=== PATIENT | female | born 1965 | race Caucasian/White ===

== ENCOUNTER → 2017-04-14 | Outpatient (CLI) | payer MEDICARE, OTHER ==
[2016-01-16 14:34] VITALS: BP 124/63
[~2017-04-14] MED LIST: BUTA1CAP5 PO; CLON0.5T3 PO; CYCL10TA2 PO; DICY10CA3 PO; LANS30CA PO; QUET300T6 PO; QUET400T6 PO; TRAZ50TA15 PO
[2017-04-14 12:32] LABS: ALBUMIN 3.8 g/dL (3.4-5.0); CALCIUM 9.8 mg/dL (8.5-10.1); CHOLESTEROL/HDL RATIO 4.4; GFR 58.7; POTASSIUM 3.7 mmol/L (3.5-5.1); TOTAL BILIRUBIN 0.4 mg/dL (0.2-1.0); TOTAL PROTEIN 7.5 g/dL (6.4-8.2)
== END | disposition home or self-care (01) ==
LOC: LAB 11:30
PROVIDERS: ATTEND Family Medicine
DX: E78.5 Hyperlipidemia, unspecified (principal); E55.9 Vitamin D deficiency, unspecified
CPT/HCPCS: 36415; 80053; 80061; 82306

== ENCOUNTER 2021-09-30 17:00 | Inpatient (IN) | payer MEDICARE, MEDICAID ==
[2021-09-30] VITALS (7 sets, daily range): BP systolic 95–124; BP diastolic 51–62
[~2021-09-30] VITALS: Ht 165.1 cm; Wt 69.9 kg
[~2021-09-30 17:00] MED LIST changes: +CLON-77 PO; -CLON0.5T3 PO; +CYCL10TA19 PO; -CYCL10TA2 PO; -QUET300T6 PO; +QUET300T89 PO; -QUET400T6 PO; +QUET400T7 PO; +TRAZ-118 PO; -TRAZ50TA15 PO
[2021-09-30] MEDS ORDERED: IV NORMAL SALINE 1000ML BAG 1,000 ML IV ONE ×3 (17:15→18:00)
[2021-09-30] MEDS ORDERED: ONDANSETRON PF 4 MG/2 ML VIAL. IVP ONE (17:15)
[2021-09-30] MEDS ORDERED: PANTOPRAZOLE IV PUSH 40 MG VIAL. IVP ONE ×2 (17:15→18:00)
[2021-09-30 18:08] LABS: BASO # 0.1 x10^3/uL (0.0-0.2); BASO % 0 % (0-3); EOS % 0 % (0-3); HEMATOCRIT 27.3 % (36.0-47.0); LYMPH # 1.9 x10^3/uL (1.0-4.8); LYMPH % 11 % (24-48); MEAN CORPUSCULAR HEMOGLOBIN 28 pg (25-35); MEAN CORPUSCULAR HGB CONC 33 g/dL (31-37); MEAN CORPUSCULAR VOLUME 86 fL (79-100); MONO % 6 % (0-9); NEUT # 14.4 x10^3/uL (1.8-7.7); NEUT % 83 % (31-73); PLATELET COUNT 248 x10^3/uL (140-400); RED BLOOD COUNT 3.18 x10^6/uL (3.50-5.40); RED CELL DISTRIBUTION WIDTH 13.7 % (11.5-14.5); WHITE BLOOD COUNT 17.4 x10^3/uL (4.0-11.0)
--- NOTE | 2021-09-30 18:16 | PHYS DOC ---
Past Medical History Past Medical History: Anxiety, Asthma, Bipolar, Fibromyalgia, GERD, Pneumonia (JOSEVIJAYA Alicia TRAPEZE PERFORMER) Past Surgical History: Other Additional Past Surgical Histo: patient is a poor historian (VIJAYA ROMEO TRAPEZE PERFORMER) Alcohol Use: None Drug Use: None (OUSMANEVIJAYA TRAPEZE PERFORMER) General Adult EDM: Chief Complaint: HEMATEMESIS/VOMITING BLOOD HPI: HPI: Patient is a 56-year-old female with history of GERD and previous upper GI bleed, bipolar, asthma, overdose with intubation, who presents the ED today to be evaluated for hematemesis. Patient states she started vomiting black emesis yesterday. She states she did not come to the ED to be evaluated because she has PTSD from the previously to intubation. Patient denies any abdominal pain, diarrhea or fever. Patient denies being on any anticoagulants. (VIJAYA ROMEO Ting TRAPEZE PERFORMER) Review of Systems: Review of Systems: Constitutional: Denies fever or chills. [] Eyes: Denies change in visual acuity. [] HENT: Denies nasal congestion or sore throat. [] Respiratory: Denies cough or shortness of breath. [] Cardiovascular: Denies chest pain or edema. [] GI: Reports hematemesis. Denies abdominal pain, bloody stools or diarrhea. [] : Denies dysuria. [] Musculoskeletal: Denies back pain or joint pain. [] Integument: Denies rash. [] Neurologic: Denies headache, focal weakness or sensory changes. [] Psychiatric: Denies depression or anxiety. [] (VIJAYA ROMEO TRAPEZE PERFORMER) Heart Score: C/O Chest Pain: N/A Risk Factors: Risk Factors: DM, Current or recent (<one month) smoker, HTN, HLP, family history of CAD, obesity. Risk Scores: Score 0 - 3: 2.5% MACE over next 6 weeks - Discharge Home Score 4 - 6: 20.3% MACE over next 6 weeks - Admit for Clinical Observation Score 7 - 10: 72.7% MACE over next 6 weeks - Early Invasive Strategies (VIJAYA ROMEO TRAPEZE PERFORMER) Current Medications: Current Medications Medications (Trade) Dose Ordered Sig/William Start Time Stop Time Status Last Admin Dose Admin Ondansetron HCl (Zofran) 4 mg 1X ONCE 09/30/21 17:15 09/30/21 17:16 DC Pantoprazole Sodium (PROTONIX VIAL for IV PUSH) 80 mg 1X ONCE 09/30/21 18:00 09/30/21 18:01 DC Pantoprazole Sodium 80 mg/ Sodium Chloride 100 ml @ 10 mls/hr Q10H 09/30/21 18:00 Sodium Chloride 1,000 ml @ 1,000 mls/hr 1X ONCE 09/30/21 18:00 09/30/21 18:59 (VIJAYA ROMEO TRAPEZE PERFORMER) Allergies: Allergies: Allergies Coded Allergies Type Severity Reaction Last Updated Verified codeine Allergy Intermediate 01/16/16 Yes metoclopramide HCl Allergy Intermediate 01/16/16 Yes (VIJAYA ROMEO TRAPEZE PERFORMER) Physical Exam: PE: Constitutional: Pale ill appearing patient older than stated age HENT: Normocephalic, atraumatic, bilateral external ears normal, oropharynx moist, no oral exudates, nose normal. Exterior mouth has dry black emesis Eyes: PERRLA, EOMI, conjunctiva normal, no discharge. [] Neck: Normal range of motion, no tenderness, supple, no stridor. [] Cardiovascular: Tachycardic Lungs & Thorax: Bilateral breath sounds clear to auscultation [] Abdomen: Bowel sounds normal, soft, no tenderness, no masses, no pulsatile masses. [] Skin: Warm, dry, no erythema, no rash. [] Back: No tenderness, no CVA tenderness. [] Extremities: No tenderness, no cyanosis, no clubbing, ROM intact, no edema. [] Neurologic: Alert and oriented X 3, normal motor function, normal sensory function, no focal deficits noted. [] Psychologic: Affect normal, judgement normal, mood normal. [] (VIJAYA ROMEO TRAPEZE PERFORMER) Current Patient Data: Labs: Laboratory Tests Test 09/30/21 18:00 White Blood Count 17.4 x10^3/uL (4.0-11.0) H Red Blood Count 3.18 x10^6/uL (3.50-5.40) L Hemoglobin 9.0 g/dL (12.0-15.5) L Hematocrit 27.3 % (36.0-47.0) L Mean Corpuscular Volume 86 fL (79-100) Mean Corpuscular Hemoglobin 28 pg (25-35) Mean Corpuscular Hemoglobin Concent 33 g/dL (31-37) Red Cell Distribution Width 13.7 % (11.5-14.5) Platelet Count 248 x10^3/uL (140-400) Neutrophils (%) (Auto) 83 % (31-73) H Lymphocytes (%) (Auto) 11 % (24-48) L Monocytes (%) (Auto) 6 % (0-9) Eosinophils (%) (Auto) 0 % (0-3) Basophils (%) (Auto) 0 % (0-3) Neutrophils # (Auto) 14.4 x10^3/uL (1.8-7.7) H Lymphocytes # (Auto) 1.9 x10^3/uL (1.0-4.8) Monocytes # (Auto) 1.0 x10^3/uL (0.0-1.1) Eosinophils # (Auto) 0.0 x10^3/uL (0.0-0.7) Basophils # (Auto) 0.1 x10^3/uL (0.0-0.2) Laboratory Tests 09/30/21 18:00 Vital Signs: Vital Signs Date Time Temp Pulse Resp B/P (MAP) Pulse Ox O2 Delivery O2 Flow Rate FiO2 09/30/21 17:51 115 22 108/68 (81) 99 Nasal Cannula 4.0 09/30/21 17:15 97.0 97.0 (VIJAYA ROMEO APRN) EKG: EKG: [] (VIJAYA ROMEO APRN) Radiology/Procedures: Radiology/Procedures: [] (VIJAYA ROMEO APRN) Course & Med Decision Making: Course & Med Decision Making Pertinent Labs and Imaging studies reviewed. (See chart for details) This is a pale-appearing ill 56-year-old female patient presenting to the ED to be evaluated for hematemesis since yesterday. Patient arrives in the ED with no blood pressure. Heart rate in the 130s. She is awake alert and oriented. Dr. Quarles was notified and she went to evaluate patient. Labs were ordered, blood 2 units was ordered. Protonix IV push as well as Protonix IV drip was ordered. 3 L of IV fluids ordered Blood pressure noted at 107/57 after IV fluids were started., Heart rate 129, temperature 97.0, O2 sats were 86% on room air, patient was put on 4 L of oxygen currently satting 99%. Given Protonix 80mg IV push and protonix IV fluids also infusing CBC with a WBC of 17.4, hemoglobin 9.0 with hematocrit of 27.3, BUN 65 with creatinine of 1.1, lactic 2.4. 2 L of blood ordered Spoke with Dr. Bermudez GI Spoke with Dr. Sánchez who accepted patient for admission (VIJAYA ROMEO TRAPEZE PERFORMER) Course & Med Decision Making I was asked by the nurse practitioner to see the patient due to reported inability to obtain a blood pressure. She presented here via EMS for coffee ground emesis. She did not demonstrate any emesis here on arrival. I disagree with some of the reported physical exam findings from the DOBIE WORKER. Her conjunctiva are not normal, they are pale. She is generally very unwell appearing, is acute ly ill appearing, agree she appears older than stated age. The patient manifested room air hypoxia, and upon my arrival to the room, no intervention had been performed. I ordered placement of two peripheral IVs, which were placed by the ED nursing staff. I placed the patient on O2/NC myself. Oxygen saturation improved immediately. I ordered the IVF boluses (verbal order in the room), and I told the DOBIE WORKER to order the third bolus as well. I instructed the DOBIE WORKER to order IV Protonix bolus and drip, as well as PRBCs. The DOBIE WORKER was instructed to contact GI and the hospitalist service for admission. I personally obtained blood from the patient via femoral stick, as the IVs did not draw, and the lab food safety auditor was not able to obtain blood peripherally. The patient's BP and tachycardia improved quite quickly once IVF was started. Please see nurse notes for trending vital signs. Dr. Wolfe came on shift shortly after I'd seen the patient, and he reported that he would continue to monitor the patient while under the care of the DOBIE WORKER here in the ED. (FELICITAS QUARLES DO) Janet Disclaimer: Janet Disclaimer: This electronic medical record was generated, in whole or in part, using a voice recognition dictation system. (VIJAYA ROMEO APRN) Departure Departure Impression: Primary Impression: Hematemesis Qualified Codes: K92.0 - Hematemesis Additional Impressions: Anemia Qualified Codes: D64.9 - Anemia, unspecified Hypotension Qualified Codes: I95.9 - Hypotension, unspecified Upper GI bleeding Referrals: SEPIDEH ADKINS (PCP) Scripts Pantoprazole Sodium (PANTOPRAZOLE SODIUM ) 40 Mg Tablet. 40 MG PO BIDAC for esophagitis for 60 Days, #120 TAB.SR Prov: NICHOLAS SÁNCHEZ MD 10/02/21 VIJAYA ROMEO APRN Sep 30, 2021 18:16 FELICITAS QUARLES DO Oct 08, 2021 06:32
[2021-09-30 18:17] LABS: PROTHROMBIN TIME PATIENT 13.9 SEC (11.7-14.0)
[2021-09-30 18:19] LABS: CALCIUM 8.6 mg/dL (8.5-10.1); CREATININE 1.1 mg/dL (0.6-1.0); GFR 51.8; POTASSIUM 3.9 mmol/L (3.5-5.1)
[2021-09-30 18:25] LABS: ALBUMIN 2.1 g/dL (3.4-5.0); ALBUMIN/GLOBULIN RATIO 0.9 (1.0-1.7); TOTAL BILIRUBIN 0.2 mg/dL (0.2-1.0); TOTAL PROTEIN 4.4 g/dL (6.4-8.2)
[2021-09-30] MEDS: PANTOPRAZOLE SODIUM IV DRIP 80 MG in IV NORMAL SALINE 100ML 100 ML IV SCH (18:40)
[2021-09-30] MEDS ORDERED: ONDANSETRON PF 4 MG/2 ML VIAL. IVP PRN (18:45)
[2021-09-30] MEDS ORDERED: 0.9 % SODIUM CHLORIDE 10 ML DISP.SYRIN. IV PRN (18:45)
--- NOTE | 2021-09-30 19:14 | PDOC1 ---
History and Physical Date of Service: DOS: DATE: 09/30/21 TIME: 18:59 Chief Complaint: Problems: (1) Hematemesis Chief Complain: hematemesis History of Present Illness: HPI: Patient is a 56-year-old female presented to the emergency room today due to 1 day history of hematemesis. Patient and mother at bedside provided history. They said that yesterday the patient had an episode of projectile like black vomit. Patient had had a decreased appetite for a few days thus had not really been eating much. The vomiting continued for at least 4-5 episodes all of which were nearly black according to them. Initially did not present to the emergency room however this morning she was still coughing up some dark-colored output thus decided present to the emergency room here. Patient does have a history of GI bleed in the past. Says it was multiple years ago she thinks she had an upper GI and colonoscopy with Dr. Bermudez. I do see pathology results from a previous EGD that shows esophagitis. Patient does repo rt she has been taking various acid reducing therapy since then. Says she believes she is on Protonix right now. I do see Prevacid in her chart. Says she is also been taking Pepto-Bismol and eating Tums multiple times a day She does also report having chronic pain that she has had to manage with [id number] medicines. Denies taking any NSAIDs like ibuprofen. Denies taking aspirin. Does take an excessive amount of Tylenol throughout the day. Says she will take up to 8 pills at a time 3 or 4 times a day. She did not really clarify what dosage of acetaminophen she was taking. On presentation to the emergency room patient was very cold and shivering. Low blood pressure was given 3 L normal saline. Hemoglobin came back at 9 and GI team was consulted by the emergency room. Recommended 2 units of blood and ICU admission. Past Medical/Surgical History: PMH/PSH: Anxiety, Asthma, Bipolar, Fibromyalgia, GERD, Pneumonia, GI Bleed Allergies: Allergies: Coded Allergies: codeine (Verified Allergy, Intermediate, 01/16/16) metoclopramide HCl (Verified Allergy, Intermediate, 01/16/16) Family History: Family History: Family history ulcers Social History: Social History: Used to binge drink in her 20s. Denies tobacco use. No drug use Current Medications: Current Medications Current Medications Pantoprazole Sodium (PROTONIX VIAL for IV PUSH) 40 mg 1X ONCE IVP ; Start 09/30/21 at 17:15; Stop 09/30/21 at 17:16; Status Cancel Sodium Chloride 1,000 ml @ 1,000 mls/hr 1X ONCE IV Last administered on 09/30/21at 17:15; Start 09/30/21 at 17:15; Stop 09/30/21 at 18:14; Status DC Ondansetron HCl (Zofran) 4 mg 1X ONCE IVP Last administered on 09/30/21at 17:45; Start 09/30/21 at 17:15; Stop 09/30/21 at 17:16; Status DC Sodium Chloride 1,000 ml @ 1,000 mls/hr 1X ONCE IV Last administered on 09/30/21at 17:45; Start 09/30/21 at 17:45; Stop 09/30/21 at 18:44; Status DC Pantoprazole Sodium (PROTONIX VIAL for IV PUSH) 80 mg 1X ONCE IVP Last administered on 09/30/21at 18:00; Start 09/30/21 at 18:00; Stop 09/30/21 at 18:01; Status DC Pantoprazole Sodium 80 mg/ Sodium Chloride 100 ml @ 10 mls/hr Q10H IV Last administered on 09/30/21at 18:40; Start 09/30/21 at 18:00 Sodium Chloride 1,000 ml @ 1,000 mls/hr 1X ONCE IV ; Start 09/30/21 at 18:00; Stop 09/30/21 at 18:59; Status DC Ondansetron HCl (Zofran) 4 mg PRN Q6HRS PRN IVP NAUSEA/VOMITING; Start 09/30/21 at 18:45 Info ([facility] Electrolyte Protocol) 1 ea DAILY MC ; Start 10/01/21 at 09:00 Sodium Chloride (Normal Saline Flush) 3 ml QSHIFT PRN IV AFTER MEDS AND BLOOD DRAWS; Start 09/30/21 at 18:45 Clonazepam (KlonoPIN) 0.5 mg BID PO ; Start 09/30/21 at 21:00 Cyclobenzaprine HCl (Flexeril) 10 mg BID PO ; Start 09/30/21 at 21:00 Quetiapine Fumarate (SEROquel XR) 300 mg HS PO ; Start 09/30/21 at 21:00 Active Scripts Active Reported Cyclobenzaprine Hcl 10 Mg Tablet 1 Tab PO BID Seroquel Xr (Quetiapine Fumarate) 300 Mg Tab.er.24h 1 Tab PO HS Trazodone Hcl 50 Mg Tablet 1 Tab PO PRN DAILY PRN Lansoprazole 30 Mg Capsule.dr 1 Cap PO DAILY Dicyclomine Hcl 10 Mg Capsule 1 Cap PO TID Pwhxjhyirw-Qpc-Jiqlqgru Cap (Butalbital/Aspirin/Caffeine) 1 Each Capsule 1 Each PO BID Clonazepam (Clonazepam) 0.5 Mg Tablet 1 Tab PO BID Seroquel Xr (Quetiapine Fumarate) 400 Mg Tab.er.24h 1 Tab PO HS ROS: Review of Systems Review of System Unless noted in HPI 14 point review of systems was negative Physical Exam: Vital Signs: Vital Signs Date Time Temp Pulse Resp B/P (MAP) Pulse Ox O2 Delivery O2 Flow Rate FiO2 09/30/21 17:51 115 22 108/68 (81) 99 Nasal Cannula 4.0 09/30/21 17:15 97.0 97.0 Physcial Exam: GEN: Appears cachectic HEENT: Normal cephalic, atraumatic, external auditory canals are patent EYES: Extraocular muscles are intact, pupil are equally round and reactive to light and accommodation MUSCULOSKELETAL: Well developed , well nourished, good range of motion ENDOCRINE: No thyromegaly was palpated LYMPHATICS: No cervical chain or axillary nodes were noted HEMATOPOIETIC: No bruising NECK: Supple, no JVD, no thyromegaly was noted LUNGS: Clear to auscultation in all lung nance without rhonchi or wheezing HEART: RRR, S!, S2 present. Peripheral pulses intact, no obvious murmurs noted ABDOMEN: Soft, nontender. Positive bowel sounds, no organomegaly, normal bowel sounds EXTREMITIES: Without clubbing, cyanosis, or edema. Pedal pulses intact. Negative Homans sign NEUROLOGIC: Normal speech and tone. A&O x 3, moves all extremities, no obvious focal deficits PSYCHIATRIC: Normal affect, normal mood. Stable SKIN: No ulcerations or rashes, good skin turgor, no jaundice VASCULAR: Good capillary refill, neurovascular bundle appears to be intact Labs: Labs: Laboratory Tests Test 09/30/21 18:00 White Blood Count 17.4 x10^3/uL (4.0-11.0) Red Blood Count 3.18 x10^6/uL (3.50-5.40) Hemoglobin 9.0 g/dL (12.0-15.5) Hematocrit 27.3 % (36.0-47.0) Mean Corpuscular Volume 86 fL (79-100) Mean Corpuscular Hemoglobin 28 pg (25-35) Mean Corpuscular Hemoglobin Concent 33 g/dL (31-37) Red Cell Distribution Width 13.7 % (11.5-14.5) Platelet Count 248 x10^3/uL (140-400) Neutrophils (%) (Auto) 83 % (31-73) Lymphocytes (%) (Auto) 11 % (24-48) Monocytes (%) (Auto) 6 % (0-9) Eosinophils (%) (Auto) 0 % (0-3) Basophils (%) (Auto) 0 % (0-3) Neutrophils # (Auto) 14.4 x10^3/uL (1.8-7.7) Lymphocytes # (Auto) 1.9 x10^3/uL (1.0-4.8) Monocytes # (Auto) 1.0 x10^3/uL (0.0-1.1) Eosinophils # (Auto) 0.0 x10^3/uL (0.0-0.7) Basophils # (Auto) 0.1 x10^3/uL (0.0-0.2) Prothrombin Time 13.9 SEC (11.7-14.0) Prothromb Time International Ratio 1.1 (0.8-1.1) Activated Partial Thromboplast Time 24 SEC (24-38) Sodium Level 139 mmol/L (136-145) Potassium Level 3.9 mmol/L (3.5-5.1) Chloride Level 106 mmol/L (98-107) Carbon Dioxide Level 25 mmol/L (21-32) Anion Gap 8 (6-14) Blood Urea Nitrogen 65 mg/dL (7-20) Creatinine 1.1 mg/dL (0.6-1.0) Estimated GFR (Cockcroft-Gault) 51.8 BUN/Creatinine Ratio 59 (6-20) Glucose Level 141 mg/dL (70-99) Lactic Acid Level 2.4 mmol/L (0.4-2.0) Calcium Level 8.6 mg/dL (8.5-10.1) Total Bilirubin 0.2 mg/dL (0.2-1.0) Aspartate Amino Transf (AST/SGOT) 32 U/L (15-37) Alanine Aminotransferase (ALT/SGPT) 37 U/L (14-59) Alkaline Phosphatase 57 U/L (46-116) Total Protein 4.4 g/dL (6.4-8.2) Albumin 2.1 g/dL (3.4-5.0) Albumin/Globulin Ratio 0.9 (1.0-1.7) Lipase 34 U/L (73-393) Laboratory Tests Test 09/30/21 18:00 White Blood Count 17.4 x10^3/uL (4.0-11.0) Red Blood Count 3.18 x10^6/uL (3.50-5.40) Hemoglobin 9.0 g/dL (12.0-15.5) Hematocrit 27.3 % (36.0-47.0) Mean Corpuscular Volume 86 fL (79-100) Mean Corpuscular Hemoglobin 28 pg (25-35) Mean Corpuscular Hemoglobin Concent 33 g/dL (31-37) Red Cell Distribution Width 13.7 % (11.5-14.5) Platelet Count 248 x10^3/uL (140-400) Neutrophils (%) (Auto) 83 % (31-73) Lymphocytes (%) (Auto) 11 % (24-48) Monocytes (%) (Auto) 6 % (0-9) Eosinophils (%) (Auto) 0 % (0-3) Basophils (%) (Auto) 0 % (0-3) Neutrophils # (Auto) 14.4 x10^3/uL (1.8-7.7) Lymphocytes # (Auto) 1.9 x10^3/uL (1.0-4.8) Monocytes # (Auto) 1.0 x10^3/uL (0.0-1.1) Eosinophils # (Auto) 0.0 x10^3/uL (0.0-0.7) Basophils # (Auto) 0.1 x10^3/uL (0.0-0.2) Prothrombin Time 13.9 SEC (11.7-14.0) Prothromb Time International Ratio 1.1 (0.8-1.1) Activated Partial Thromboplast Time 24 SEC (24-38) Sodium Level 139 mmol/L (136-145) Potassium Level 3.9 mmol/L (3.5-5.1) Chloride Level 106 mmol/L (98-107) Carbon Dioxide Level 25 mmol/L (21-32) Anion Gap 8 (6-14) Blood Urea Nitrogen 65 mg/dL (7-20) Creatinine 1.1 mg/dL (0.6-1.0) Estimated GFR (Cockcroft-Gault) 51.8 BUN/Creatinine Ratio 59 (6-20) Glucose Level 141 mg/dL (70-99) Lactic Acid Level 2.4 mmol/L (0.4-2.0) Calcium Level 8.6 mg/dL (8.5-10.1) Total Bilirubin 0.2 mg/dL (0.2-1.0) Aspartate Amino Transf (AST/SGOT) 32 U/L (15-37) Alanine Aminotransferase (ALT/SGPT) 37 U/L (14-59) Alkaline Phosphatase 57 U/L (46-116) Total Protein 4.4 g/dL (6.4-8.2) Albumin 2.1 g/dL (3.4-5.0) Albumin/Globulin Ratio 0.9 (1.0-1.7) Lipase 34 U/L (73-393) Images: Images Assessment/Plan Assessment/Plan Hematemesis secondary to suspected upper GI bleed versus gastroenteritis, severe malnutrition, history of multiple psychiatric issues -Patient with 1 day history hematemesis presented emergency room today. Hypotensive requiring fluid resuscitation. Anemic possible GI bleed -Hemoglobin 9 upon arrival. GI team was consulted by emergency room recommending ICU admission and 2 units packed red blood cells -Has history of GI bleeds -Patient is already received 3 L of fluid. Try albumin next if low blood pressure otherwise can start vasopressors -Protonix drip -Patient does have a leukocytosis which I do suspect is secondary to her vomiting and likely bleed however given clinical presentation will start Rocephin for empiric coverage -We will check Tylenol level. UA UDS -N.p.o. -No DVT prophylaxis -Home meds resumed as indicated I spent 45 minutes of critical care time reviewing patient's chart labs imaging, [id number] with the patient examining patient and discussing with ER physicians and nurses. Justifications for Admission Other Justification NICHOLAS SÁNCHEZ MD Sep 30, 2021 19:14
[2021-09-30 19:18] LABS: ACETAMIN 3.94 mcg/ml (10-30)
[2021-09-30] MEDS: cefTRIAXone IV Push 1 GM VIAL. IVP SCH (19:53)
[2021-09-30 20:58] LABS: BILIRUBIN,URINE NEGATIVE (NEG); CLARITY,URINE CLEAR; COLOR,URINE YELLOW; NITRITE,URINE NEGATIVE (NEG); PH,URINE 5.5 (<5.0-8.0); PROTEIN,URINE NEGATIVE (NEG-TRACE); UROBILINOGEN,URINE 0.2 mg/dL (0.2 mg/dL)
[2021-09-30] MEDS ORDERED: QUEtiapine 300 MG TAB.ER.24H. PO SCH (21:00)
[2021-09-30 21:05] LABS: BARBITURATES NEG (NEG); BENZODIAZEPINES POS (NEG); CANNABINOIDS NEG (NEG); COCAINE NEG (NEG); METHADONE NEG (NEG); OPIATES POS (NEG); PHENCYCLIDINE NEG (NEG)
[2021-09-30 21:10] LABS: AMPHETAMINE/METHAMPHETAMINE NEG (NEG)
[2021-09-30 21:19] LABS: BACTERIA,URINE MODERATE /HPF (0-FEW)
[2021-09-30 21:21] LABS: AMORPHOUS SEDIMENT,UR PRESENT /HPF; RBC,URINE 0 /HPF (0-2)
[2021-09-30 21:22] LABS: HYALINE CASTS, URINE OCCASIONAL /HPF
[2021-09-30 23:09] LABS: BASO # 0.1 x10^3/uL (0.0-0.2); BASO % 1 % (0-3); EOS % 0 % (0-3); HEMATOCRIT 33.5 % (36.0-47.0); HEMOGLOBIN 11.1 g/dL (12.0-15.5); LYMPH # 2.3 x10^3/uL (1.0-4.8); LYMPH % 16 % (24-48); MEAN CORPUSCULAR HEMOGLOBIN 28 pg (25-35); MEAN CORPUSCULAR HGB CONC 33 g/dL (31-37); MEAN CORPUSCULAR VOLUME 85 fL (79-100); MONO # 0.7 x10^3/uL (0.0-1.1); MONO % 5 % (0-9); NEUT # 11.5 x10^3/uL (1.8-7.7); NEUT % 79 % (31-73); PLATELET COUNT 180 x10^3/uL (140-400); RED BLOOD COUNT 3.96 x10^6/uL (3.50-5.40); WHITE BLOOD COUNT 14.5 x10^3/uL (4.0-11.0)
[2021-10-01] VITALS (19 sets, daily range): BP systolic 90–113; BP diastolic 44–61
[2021-10-01] MEDS ORDERED: ONDANSETRON PF 4 MG/2 ML VIAL. IVP PRN
[2021-10-01] MEDS: clonazePAM 0.5 MG TABLET PO SCH ×2 (01:45→09:00)
[2021-10-01] MEDS: CYCLOBENZAPRINE 10 MG TABLET. PO SCH ×4 (01:45→20:01)
[2021-10-01] MEDS: PANTOPRAZOLE SODIUM IV DRIP 80 MG in IV NORMAL SALINE 100ML 100 ML IV SCH (03:04)
[2021-10-01] MEDS ORDERED: PANT40TA77 PO (03:40)
[2021-10-01] MEDS ORDERED: FLUO40CA2 PO (03:40)
[2021-10-01] MEDS ORDERED: ARIP5TAB58 PO (03:40)
[2021-10-01] MEDS ORDERED: HYDR50TA PO (03:40)
[2021-10-01] MEDS ORDERED: EZET10TA20 PO (03:40)
[2021-10-01] MEDS ORDERED: OMEG1CAP50 PO (03:40)
[2021-10-01] MEDS ORDERED: CLONAZEPAM1 MG PO (03:40)
[2021-10-01] MEDS ORDERED: PROP10TA PO (03:40)
[2021-10-01] MEDS ORDERED: GLUC1TAB71 PO (03:40)
--- NOTE | 2021-10-01 07:19 | NUR ---
Pt states that she does not want to be intubated, specified that she only wants chest compressions and medications, no intubation. Miranda VINCENT also witnessed this.
[2021-10-01] MEDS: IV RINGERS,LACTATED 1000ML 1,000 ML IV SCH ×2 (08:28→19:57)
--- NOTE | 2021-10-01 08:58 | PDOC2 ---
GI CONSULT Date of Service: DATE: 10/01/21 TIME: 08:48 Reason For Consult: GI bleed HPI: HPI: 56 y/o female admitted through ER. Ill since Wednesday - began with nausea, then progressed to "projectile black" vomiting on Wednesday, less Wednesday. Associated w/ dizziness and weakness in legs. Denies precipitating events. H/o GERD on PPI QD; also has been taking "antacid chew" for breakthrough heartburn. Sore throat and hoarseness currently. Occasional dysphagia ("poornima comes up") only w/ pasta. No abd pain, constipation, or hematochezia. H/o IBS- D - takes Pepto and sometimes stools look black. Might have lost a few pounds. Good appetite prior to symptom onset. Past EGD w/ Dr. Bermudez in 12/2015 - cannot view procedure report but esophagus biopsy result c/w reflux esophagitis w/ ulcer. She reports normal colonoscopy around this time; these results are also unavailable for review. S/p cholecystectomy. H/o C Diff (thinks while intubated in 2003). Denies liver, pancreas, and PUD history. Viral Hepatitis panel negative. No NSAIDs but takes "a lot" of Tylenol. PMH: PMH: asthma, pneumonia, anxiety, bipolar, fibromyalgia, UE DVT cholecystectomy, sinus surgery, FH: Family History: No pertinent hx Social History: Smoke: No ALCOHOL: other (h/o binge drinking a couple years ago - now drinks alcohol ra rely) Drugs: None ROS: GEN: Denies fevers, chills, sweats HEENT: +sore throat CV: Denies chest pain RESP: Denies shortness of air, cough GI: Per HPI : Denies hematuria, dysuria ENDO: Denies weight changes NEURO: +dizziness MSK: +weakness SKIN: Denies jaundice, pruritus Vitals: Vitals: Vital Signs Date Time Temp Pulse Resp B/P (MAP) Pulse Ox O2 Delivery O2 Flow Rate FiO2 10/01/21 08:33 Nasal Cannula 2.0 10/01/21 08:23 116 18 106/47 (66) 98 10/01/21 08:23 97.4 97.4 Labs: Labs: Laboratory Tests Test 09/30/21 18:00 09/30/21 20:45 09/30/21 22:55 10/01/21 02:25 White Blood Count 17.4 x10^3/uL (4.0-11.0) 14.5 x10^3/uL (4.0-11.0) Red Blood Count 3.18 x10^6/uL (3.50-5.40) 3.96 x10^6/uL (3.50-5.40) Hemoglobin 9.0 g/dL (12.0-15.5) 11.1 g/dL (12.0-15.5) Hematocrit 27.3 % (36.0-47.0) 33.5 % (36.0-47.0) Mean Corpuscular Volume 86 fL (79-100) 85 fL (79-100) Mean Corpuscular Hemoglobin 28 pg (25-35) 28 pg (25-35) Mean Corpuscular Hemoglobin Concent 33 g/dL (31-37) 33 g/dL (31-37) Red Cell Distribution Width 13.7 % (11.5-14.5) 14.0 % (11.5-14.5) Platelet Count 248 x10^3/uL (140-400) 180 x10^3/uL (140-400) Neutrophils (%) (Auto) 83 % (31-73) 79 % (31-73) Lymphocytes (%) (Auto) 11 % (24-48) 16 % (24-48) Monocytes (%) (Auto) 6 % (0-9) 5 % (0-9) Eosinophils (%) (Auto) 0 % (0-3) 0 % (0-3) Basophils (%) (Auto) 0 % (0-3) 1 % (0-3) Neutrophils # (Auto) 14.4 x10^3/uL (1.8-7.7) 11.5 x10^3/uL (1.8-7.7) Lymphocytes # (Auto) 1.9 x10^3/uL (1.0-4.8) 2.3 x10^3/uL (1.0-4.8) Monocytes # (Auto) 1.0 x10^3/uL (0.0-1.1) 0.7 x10^3/uL (0.0-1.1) Eosinophils # (Auto) 0.0 x10^3/uL (0.0-0.7) 0.0 x10^3/uL (0.0-0.7) Basophils # (Auto) 0.1 x10^3/uL (0.0-0.2) 0.1 x10^3/uL (0.0-0.2) Prothrombin Time 13.9 SEC (11.7-14.0) Prothromb Time International Ratio 1.1 (0.8-1.1) Activated Partial Thromboplast Time 24 SEC (24-38) Sodium Level 139 mmol/L (136-145) Potassium Level 3.9 mmol/L (3.5-5.1) Chloride Level 106 mmol/L (98-107) Carbon Dioxide Level 25 mmol/L (21-32) Anion Gap 8 (6-14) Blood Urea Nitrogen 65 mg/dL (7-20) Creatinine 1.1 mg/dL (0.6-1.0) Estimated GFR (Cockcroft-Gault) 51.8 BUN/Creatinine Ratio 59 (6-20) Glucose Level 141 mg/dL (70-99) Lactic Acid Level 2.4 mmol/L (0.4-2.0) 0.6 mmol/L (0.4-2.0) Calcium Level 8.6 mg/dL (8.5-10.1) Total Bilirubin 0.2 mg/dL (0.2-1.0) Aspartate Amino Transf (AST/SGOT) 32 U/L (15-37) Alanine Aminotransferase (ALT/SGPT) 37 U/L (14-59) Alkaline Phosphatase 57 U/L (46-116) Total Protein 4.4 g/dL (6.4-8.2) Albumin 2.1 g/dL (3.4-5.0) Albumin/Globulin Ratio 0.9 (1.0-1.7) Lipase 34 U/L (73-393) Acetaminophen Level 3.94 mcg/ml (10-30) Acetaminophen Last Dose Date Acetaminophen Last Dose Time Hepatitis A IgM Antibody Nonreactive (Nonreactive) Hepatitis B Surface Antigen Nonreactive (Nonreactive) Hepatitis B Core IgM Antibody Nonreactive (Nonreactive) Hepatitis C IgG Antibody Nonreactive (Nonreactive) Urine Collection Type U cath Urine Color Yellow Urine Clarity Clear Urine pH 5.5 (<5.0-8.0) Urine Specific [place] 1.025 (1.000-1.030) Urine Protein Negative mg/dL (NEG-TRACE) Urine Glucose (UA) Negative mg/dL (NEG) Urine Ketones (Stick) Negative mg/dL (NEG) Urine Blood Negative (NEG) Urine Nitrite Negative (NEG) Urine Bilirubin Negative (NEG) Urine Urobilinogen Dipstick 0.2 mg/dL (0.2 mg/dL) Urine Leukocyte Esterase Negative (NEG) Urine RBC 0 /HPF (0-2) Urine WBC 1-4 /HPF (0-4) Urine Squamous Epithelial Cells Few /LPF Urine Amorphous Sediment Present /HPF Urine Bacteria Moderate /HPF (0-FEW) Urine Hyaline Casts Occasional /HPF Urine Mucus Mod /LPF Urine Opiates Screen Pos (NEG) Urine Methadone Screen Neg (NEG) Urine Barbiturates Neg (NEG) Urine Phencyclidine Screen Neg (NEG) Urine Amphetamine/Methamphetamine Neg (NEG) Urine Benzodiazepines Screen Pos (NEG) Urine Cocaine Screen Neg (NEG) Urine Cannabinoids Screen Neg (NEG) Urine Ethyl Alcohol Neg (NEG) SARS-CoV-2 Antigen (Rapid) Negative (NEGATIVE) Allergies: Coded Allergies: codeine (Verified Allergy, Intermediate, 10/01/21) metoclopramide HCl (Verified Allergy, Intermediate, 10/01/21) quetiapine (Verified Allergy, Unknown, 10/01/21) pt states it makes her psychotic,and hallucinate. Medications: Current Medications Medications (Trade) Dose Ordered Sig/William Route PRN Reason Start Time Stop Time Status Last Admin Dose Admin Sodium Chloride 1,000 ml @ 1,000 mls/hr 1X ONCE IV 09/30/21 17:15 09/30/21 18:14 DC 09/30/21 17:15 Ondansetron HCl (Zofran) 4 mg 1X ONCE IVP 09/30/21 17:15 09/30/21 17:16 DC 09/30/21 17:45 Sodium Chloride 1,000 ml @ 1,000 mls/hr 1X ONCE IV 09/30/21 17:45 09/30/21 18:44 DC 09/30/21 17:45 Pantoprazole Sodium (PROTONIX VIAL for IV PUSH) 80 mg 1X ONCE IVP 09/30/21 18:00 09/30/21 18:01 DC 09/30/21 18:00 Pantoprazole Sodium 80 mg/ Sodium Chloride 100 ml @ 10 mls/hr Q10H IV 09/30/21 18:00 10/01/21 03:04 Sodium Chloride 1,000 ml @ 1,000 mls/hr 1X ONCE IV 09/30/21 18:00 09/30/21 18:59 DC 09/30/21 19:53 Clonazepam (KlonoPIN) 0.5 mg BID PO 09/30/21 21:00 10/01/21 01:45 Cyclobenzaprine HCl (Flexeril) 10 mg BID PO 09/30/21 21:00 10/01/21 01:45 Ceftriaxone Sodium (Rocephin) 1 gm QHS IVP 09/30/21 19:30 09/30/21 19:53 Ringer's Solution 1,000 ml @ 75 mls/hr [id number] IV 10/01/21 08:30 10/01/21 08:28 Imaging: Imaging: none PE: GEN: NAD HEENT: hoarse LUNGS: CTAB anteriorly HEART: tachycardic ABD: NABS, S/ND/NT EXTREMITY: No edema SKIN: No rashes, no jaundice NEURO/PSYCH: A & O 3 A/P: A/P: N/v ("black" emesis), weakness Hypotension, tachycardia Anemia - improved w/ transfusions Leukocytosis, elevated lactic acid (resolved), elevated BUN H/o GERD - on PPI CRC screen - reportedly UTD H/o IBS-D H/o C Diff S/p cholecystectomy Chronic pain COVID negative -- Plans for EGD this morning w/ Dr. Bermudez. Further recs pending. Continue PPI drip for now. Will attempt to review past scopes. RAUL BARBER Oct 01, 2021 08:58
[2021-10-01] MEDS: ELECTROLYTE (ICU) PROTOCOL. MC SCH (09:00)
--- NOTE | 2021-10-01 09:03 | NUR ---
SS following for discharge planning. SS reviewed pt chart and discussed with pt RN. Pt is from home and is currently requiring oxygen at two liters nasal canula. COVID19 negative. GI consulted. EGD today. Pt on IV Rocephin. SS will continue to follow for discharge planning.
--- NOTE | 2021-10-01 09:38 | PDOC4 ---
Operative Note Operative Note EGD with bx Meds propofol per anesthesia Pre-op dx Hematemesis/acute blood loss anemia Post-op dx erosive GERD s/p bx hiatal hernia Plan PPI therapy adv diet serial CBCs JUANIS VÁZQUEZ MD Oct 01, 2021 09:38
[2021-10-01] MEDS ORDERED: LIDOCAINE 2% PF 5 ML VIAL. ONE (09:41)
[2021-10-01] MEDS ORDERED: PROPOFOL 10 MG/ML (20ML) VIAL. IV ONE (09:41)
[2021-10-01] MEDS ORDERED: ACET325T21 PO (11:38)
[2021-10-01] MEDS: ACETAMINOPHEN 325 MG TABLET. PO PRN ×2 (11:46→19:56)
--- NOTE | 2021-10-01 12:04 | PDOC ---
[facility] PROGRESS NOTE Date of Service DOS: DATE: 10/01/21 TIME: 12:00 Chief Complaint Chief Complaint Hematemesis secondary to suspected upper GI bleed versus gastroenteritis, severe malnutrition, history of multiple psychiatric issues -Patient with 1 day history hematemesis presented emergency room today. Hypotensive requiring fluid resuscitation. Anemic possible GI bleed -Hemoglobin 9 upon arrival. GI team was consulted by emergency room recommending ICU admission and 2 units packed red blood cells. S/P EGD, normal -Has history of GI bleeds -Patient is already received 3 L of fluid. -Protonix drip -Patient does have a leukocytosis which I do suspect is secondary to her vomiting and likely bleed however given clinical presentation will start Rocephin for empiric coverage -Normal Tylenol level -Diet as tolerated -No DVT prophylaxis -Home meds resumed as indicated History of Present Illness History of Present Illness HPI: Patient is a 56-year-old female presented to the emergency room today due to 1 day history of hematemesis. Patient and mother at bedside provided history. They said that yesterday the patient had an episode of projectile like black vomit. Patient had had a decreased appetite for a few days thus had not really been eating much. The vomiting continued for at least 4-5 episodes all of which were nearly black according to them. Initially did not present to the emergency room however this morning she was still coughing up some dark-colored output thus decided present to the emergency room here. Patient does have a history of GI bleed in the past. Says it was multiple years ago she thinks she had an upper GI and colonoscopy with Dr. Bermudez. I do see pathology results from a previous EGD that shows esophagitis. Patient does report she has been taking various acid reducing therapy since then. Says she believes she is on Protonix right now. I do see Prevacid in her chart. Says she is also been taking Pepto-Bismol and eating Tums multiple times a day She does also report having chronic pain that she has had to manage with [id number]-[id number] medicines. Denies taking any NSAIDs like ibuprofen. Denies taking aspirin. Does take an excessive amount of Tylenol throughout the day. Says she will take up to 8 pills at a time 3 or 4 times a day. She did not r eally clarify what dosage of acetaminophen she was taking. On presentation to the emergency room patient was very cold and shivering. Low blood pressure was given 3 L normal saline. Hemoglobin came back at 9 and GI team was consulted by the emergency room. Recommended 2 units of blood and ICU admission. 10/01 Patient evaluated and examined at bedside. She has undergone EGD she was doing well afterwards. She is somewhat tachycardic however patient and family at bedside do report she has some baseline sinus tach that has been worked up in the past. Watch blood counts. Okay to transfer out of ICU. If hemoglobin remains stable can likely discharge tomorrow. Vitals/I&O Vitals/I&O: Vital Signs Date Time Temp Pulse Resp B/P (MAP) Pulse Ox O2 Delivery O2 Flow Rate FiO2 10/01/21 11:57 Nasal Cannula 2.0 10/01/21 11:54 109 18 93/53 (66) 90 10/01/21 10:45 98.3 98.3 I & O 09/30/21 09/30/21 10/01/21 15:00 23:00 07:00 Intake Total 2300 ml 0 ml Output Total 340 ml Balance 2300 ml -340 ml Physical Exam General: Alert, Oriented X3, Cooperative Heart: Regular rate, Normal S1, Normal S2 Lungs: Clear Abdomen: Normal bowel sounds, Soft Extremities: No edema, Normal pulses Skin: No significant lesion Labs Labs: Laboratory Tests Test 09/30/21 18:00 09/30/21 20:45 09/30/21 22:55 10/01/21 02:25 White Blood Count 17.4 x10^3/uL (4.0-11.0) 14.5 x10^3/uL (4.0-11.0) Red Blood Count 3.18 x10^6/uL (3.50-5.40) 3.96 x10^6/uL (3.50-5.40) Hemoglobin 9.0 g/dL (12.0-15.5) 11.1 g/dL (12.0-15.5) Hematocrit 27.3 % (36.0-47.0) 33.5 % (36.0-47.0) Mean Corpuscular Volume 86 fL (79-100) 85 fL (79-100) Mean Corpuscular Hemoglobin 28 pg (25-35) 28 pg (25-35) Mean Corpuscular Hemoglobin Concent 33 g/dL (31-37) 33 g/dL (31-37) Red Cell Distribution Width 13.7 % (11.5-14.5) 14.0 % (11.5-14.5) Platelet Count 248 x10^3/uL (140-400) 180 x10^3/uL (140-400) Neutrophils (%) (Auto) 83 % (31-73) 79 % (31-73) Lymphocytes (%) (Auto) 11 % (24-48) 16 % (24-48) Monocytes (%) (Auto) 6 % (0-9) 5 % (0-9) Eosinophils (%) (Auto) 0 % (0-3) 0 % (0-3) Basophils (%) (Auto) 0 % (0-3) 1 % (0-3) Neutrophils # (Auto) 14.4 x10^3/uL (1.8-7.7) 11.5 x10^3/uL (1.8-7.7) Lymphocytes # (Auto) 1.9 x10^3/uL (1.0-4.8) 2.3 x10^3/uL (1.0-4.8) Monocytes # (Auto) 1.0 x10^3/uL (0.0-1.1) 0.7 x10^3/uL (0.0-1.1) Eosinophils # (Auto) 0.0 x10^3/uL (0.0-0.7) 0.0 x10^3/uL (0.0-0.7) Basophils # (Auto) 0.1 x10^3/uL (0.0-0.2) 0.1 x10^3/uL (0.0-0.2) Prothrombin Time 13.9 SEC (11.7-14.0) Prothromb Time International Ratio 1.1 (0.8-1.1) Activated Partial Thromboplast Time 24 SEC (24-38) Sodium Level 139 mmol/L (136-145) Potassium Level 3.9 mmol/L (3.5-5.1) Chloride Level 106 mmol/L (98-107) Carbon Dioxide Level 25 mmol/L (21-32) Anion Gap 8 (6-14) Blood Urea Nitrogen 65 mg/dL (7-20) Creatinine 1.1 mg/dL (0.6-1.0) Estimated GFR (Cockcroft-Gault) 51.8 BUN/Creatinine Ratio 59 (6-20) Glucose Level 141 mg/dL (70-99) Lactic Acid Level 2.4 mmol/L (0.4-2.0) 0.6 mmol/L (0.4-2.0) Calcium Level 8.6 mg/dL (8.5-10.1) Total Bilirubin 0.2 mg/dL (0.2-1.0) Aspartate Amino Transf (AST/SGOT) 32 U/L (15-37) Alanine Aminotransferase (ALT/SGPT) 37 U/L (14-59) Alkaline Phosphatase 57 U/L (46-116) Total Protein 4.4 g/dL (6.4-8.2) Albumin 2.1 g/dL (3.4-5.0) Albumin/Globulin Ratio 0.9 (1.0-1.7) Lipase 34 U/L (73-393) Acetaminophen Level 3.94 mcg/ml (10-30) Acetaminophen Last Dose Date Acetaminophen Last Dose Time Hepatitis A IgM Antibody Nonreactive (Nonreactive) Hepatitis B Surface Antigen Nonreactive (Nonreactive) Hepatitis B Core IgM Antibody Nonreactive (Nonreactive) Hepatitis C IgG Antibody Nonreactive (Nonreactive) Urine Collection Type U cath Urine Color Yellow Urine Clarity Clear Urine pH 5.5 (<5.0-8.0) Urine Specific [place] 1.025 (1.000-1.030) Urine Protein Negative mg/dL (NEG-TRACE) Urine Glucose (UA) Negative mg/dL (NEG) Urine Ketones (Stick) Negative mg/dL (NEG) Urine Blood Negative (NEG) Urine Nitrite Negative (NEG) Urine Bilirubin Negative (NEG) Urine Urobilinogen Dipstick 0.2 mg/dL (0.2 mg/dL) Urine Leukocyte Esterase Negative (NEG) Urine RBC 0 /HPF (0-2) Urine WBC 1-4 /HPF (0-4) Urine Squamous Epithelial Cells Few /LPF Urine Amorphous Sediment Present /HPF Urine Bacteria Moderate /HPF (0-FEW) Urine Hyaline Casts Occasional /HPF Urine Mucus Mod /LPF Urine Opiates Screen Pos (NEG) Urine Methadone Screen Neg (NEG) Urine Barbiturates Neg (NEG) Urine Phencyclidine Screen Neg (NEG) Urine Amphetamine/Methamphetamine Neg (NEG) Urine Benzodiazepines Screen Pos (NEG) Urine Cocaine Screen Neg (NEG) Urine Cannabinoids Screen Neg (NEG) Urine Ethyl Alcohol Neg (NEG) SARS-CoV-2 Antigen (Rapid) Negative (NEGATIVE) Assessment and Plan Assessmemt and Plan Problems Medical Problems: (1) Anemia Status: Acute (2) Hypotension Status: Acute (3) Upper GI bleeding Status: Acute Comment Review of Relevant I have reviewed the following items maryuri (where applicable) has been applied. Medications: Current Medications Medications (Trade) Dose Ordered Sig/William Route PRN Reason Start Time Stop Time Status Last Admin Dose Admin Sodium Chloride 1,000 ml @ 1,000 mls/hr 1X ONCE IV 09/30/21 17:15 09/30/21 18:14 DC 09/30/21 17:15 Ondansetron HCl (Zofran) 4 mg 1X ONCE IVP 09/30/21 17:15 09/30/21 17:16 DC 09/30/21 17:45 Sodium Chloride 1,000 ml @ 1,000 mls/hr 1X ONCE IV 09/30/21 17:45 09/30/21 18:44 DC 09/30/21 17:45 Pantoprazole Sodium (PROTONIX VIAL for IV PUSH) 80 mg 1X ONCE IVP 09/30/21 18:00 10/01/21 10:42 DC 09/30/21 18:00 Pantoprazole Sodium 80 mg/ Sodium Chloride 100 ml @ 10 mls/hr Q10H IV 09/30/21 18:00 10/01/21 11:07 DC 10/01/21 03:04 Sodium Chloride 1,000 ml @ 1,000 mls/hr 1X ONCE IV 09/30/21 18:00 09/30/21 18:59 DC 09/30/21 19:53 Clonazepam (KlonoPIN) 0.5 mg BID PO 09/30/21 21:00 10/01/21 01:45 Cyclobenzaprine HCl (Flexeril) 10 mg BID PO 09/30/21 21:00 10/01/21 01:45 Ceftriaxone Sodium (Rocephin) 1 gm QHS IVP 09/30/21 19:30 09/30/21 19:53 Ringer's Solution 1,000 ml @ 75 mls/hr [id number] IV 10/01/21 08:30 10/01/21 08:28 Acetaminophen (Tylenol) 650 mg PRN Q6HRS PRN PO PAIN 10/01/21 11:45 10/01/21 11:46 Justifications for Admission Other Justification NICHOLAS SÁNCHEZ MD Oct 01, 2021 12:04
[2021-10-01] MEDS ORDERED: clonazePAM 0.5 MG TABLET PO PRN (12:30)
[2021-10-01 12:48] LABS: HEMATOCRIT 32.8 % (36.0-47.0); HEMOGLOBIN 10.7 g/dL (12.0-15.5); RED BLOOD COUNT 3.83 x10^6/uL (3.50-5.40); RED CELL DISTRIBUTION WIDTH 14.5 % (11.5-14.5); WHITE BLOOD COUNT 11.9 x10^3/uL (4.0-11.0)
[2021-10-01] MEDS: FLUoxetine HCL 20 MG CAPSULE PO SCH (13:09)
[2021-10-01] MEDS: ARIPiprazole 5 MG TABLET PO SCH (13:09)
[2021-10-01] MEDS: EZETIMIBE 10 MG TABLET. PO SCH (13:10)
[2021-10-01] MEDS: hydrOXYzine 25 MG TABLET PO SCH ×2 (14:00→19:57)
--- NOTE | 2021-10-01 16:50 | NUR ---
PAtient arrived to unit via bed from ICU. Patient Alert and oriented times 4 . speech is clear but hoarse from vomiting yesterday. voices needs. allpersonal belongin=gs are with patient. Family at bedside.
[2021-10-01] MEDS: cefTRIAXone IV Push 1 GM VIAL. IVP SCH (17:36)
[2021-10-01] MEDS: PANTOPRAZOLE IV PUSH 40 MG VIAL. IVP SCH (17:36)
--- NOTE | 2021-10-01 18:43 | NUR ---
Pt pulled NG out. Paged Dr. Garces to see if he would like NG replaced. Left message with answering service.
[2021-10-01] MEDS: LACTOBACILLUS RHAMNOSUS GG 1 CAPSULE. PO SCH (19:56)
[2021-10-02 03:04] VITALS: BP 103/48
[2021-10-02 04:11] LABS: HEMATOCRIT 28.7 % (36.0-47.0); HEMOGLOBIN 9.6 g/dL (12.0-15.5); RED BLOOD COUNT 3.35 x10^6/uL (3.50-5.40); RED CELL DISTRIBUTION WIDTH 14.5 % (11.5-14.5); WHITE BLOOD COUNT 6.4 x10^3/uL (4.0-11.0)
[2021-10-02] MEDS: ACETAMINOPHEN 325 MG TABLET. PO PRN ×2 (05:05→09:57)
[2021-10-02 07:00] VITALS: BP 106/43
[2021-10-02] MEDS ORDERED: PANTOPRAZOLE 40 MG TABLET.DR. PO SCH ×2 (07:30→16:30)
[2021-10-02] MEDS: PANTOPRAZOLE IV PUSH 40 MG VIAL. IVP SCH (08:47)
[2021-10-02] MEDS: LACTOBACILLUS RHAMNOSUS GG 1 CAPSULE. PO SCH (08:47)
[2021-10-02] MEDS: hydrOXYzine 25 MG TABLET PO SCH (08:47)
[2021-10-02] MEDS: ARIPiprazole 5 MG TABLET PO SCH (08:47)
[2021-10-02] MEDS: FLUoxetine HCL 20 MG CAPSULE PO SCH (08:47)
[2021-10-02] MEDS: CYCLOBENZAPRINE 10 MG TABLET. PO SCH (08:47)
[2021-10-02] MEDS: EZETIMIBE 10 MG TABLET. PO SCH (08:47)
[2021-10-02] MEDS: ELECTROLYTE (ICU) PROTOCOL. MC SCH (09:00)
--- NOTE | 2021-10-02 09:34 | PDOC ---
Date of Service: DATE: 10/02/21 TIME: 09:29 Subjective: Subjective: Tolerated regular diet for dinner and breakfast. No n/v. Still hoarse. No abd pain. No bleeding. Wants to know if stress could have caused all this. Objective: Vital Signs: Vital Signs Date Time Temp Pulse Resp B/P (MAP) Pulse Ox O2 Delivery O2 Flow Rate FiO2 10/02/21 07:00 98.1 98 16 106/43 (64) 92 Nasal Cannula 2.0 98.1 Labs: Laboratory Tests Test 10/01/21 12:35 10/02/21 03:50 White Blood Count 11.9 x10^3/uL 6.4 x10^3/uL Red Blood Count 3.83 x10^6/uL 3.35 x10^6/uL Hemoglobin 10.7 g/dL 9.6 g/dL Hematocrit 32.8 % 28.7 % Mean Corpuscular Volume 86 fL 85 fL Mean Corpuscular Hemoglobin 28 pg 29 pg Mean Corpuscular Hemoglobin Concent 33 g/dL 33 g/dL Red Cell Distribution Width 14.5 % 14.5 % Platelet Count 162 x10^3/uL 134 x10^3/uL URINE CULTURE Final Final No Growth on 10/02/21 at 0906 Imaging: EGD 10/01/21 Pre-op dx Hematemesis/acute blood loss anemia Post-op dx erosive GERD s/p bx hiatal hernia Plan PPI therapy adv diet serial CBCs PE: GEN: NAD - most of breakfast tray consumed HEENT: hoarse LUNGS: CTAB HEART: RRR ABD: S/ND/NT NEURO/PSYCH: A & O 3 A/P: N/v - resolved Anemia - Hgb drifting w/o obvious bleeding Erosive esophagitis (biopsy results pending), hiatal hernia Chronic pain COVID negative -- Tolerating diet, no vomiting. Continue PPI - will change to PO. Consider DC soon. Justicifation of Admission Dx: Justifications for Admission: Justification of Admission Dx: Yes RAUL BARBER Oct 02, 2021 09:34
--- NOTE | 2021-10-02 10:28 | NUR ---
SW following. Discussed with RN, pt from home, 2L (does not use oxygen at home), cardiac diet, COVID-19 negative. GI following - pt having and EGD biopsy today. RN advised no SW needs at this time. SW will continue to follow.
[2021-10-02 11:00] VITALS: BP 103/49
[2021-10-02] MEDS: IV RINGERS,LACTATED 1000ML 1,000 ML IV SCH (11:10)
[2021-10-02] MEDS ORDERED: PANT40TA77 PO (11:15)
--- NOTE | 2021-10-02 11:30 | PDOC3 ---
[facility]-Discharge Summary Date of Admission: Date of Admission: Sep 30, 2021 Date of Discharge: Date of Discharge: Oct 02, 2021 Admission Diagnosis: Problems: (1) Hematemesis Discharge Diagnosis: Discharge Diagnosis: Same Consults: Consults: GI Procedures: Procedures: Operative Note EGD with bx Meds propofol per anesthesia Pre-op dx Hematemesis/acute blood loss anemia Post-op dx erosive GERD s/p bx hiatal hernia Plan PPI therapy adv diet serial CBCs JUANIS BERMUDEZ MD Hospital Course: Hospital Course: Chief Complaint Hematemesis secondary to suspected upper GI bleed versus gastroenteritis, severe malnutrition, history of multiple psychiatric issues -Patient with 1 day history hematemesis presented emergency room today. Hypotensive requiring fluid resuscitation. Anemic possible GI bleed -Hemoglobin 9 upon arrival. GI team was consulted by emergency room recommending ICU admission and 2 units packed red blood cells. S/P EGD, normal -Has history of GI bleeds -Patient is already received 3 L of fluid. -Protonix drip -Patient does have a leukocytosis which I do suspect is secondary to her vomiting and likely bleed however given clinical presentation will start Rocephin for empiric coverage -Normal Tylenol level -Diet as tolerated -No DVT prophylaxis -Home meds resumed as indicated History of Present Illness History of Present Illness HPI: Patient is a 56-year-old female presented to the emergency room today due to 1 day history of hematemesis. Patient and mother at bedside provided history. They said that yesterday the patient had an episode of projectile like black vomit. Patient had had a decreased appetite for a few days thus had not really been eating much. The vomiting continued for at least 4-5 episodes all of which were nearly black according to them. Initially did not present to the emergency room however this morning she was still coughing up some dark-colored output thus decided present to the emergency room here. Patient does have a history of GI bleed in the past. Says it was multiple years ago she thinks she had an upper GI and colonoscopy with Dr. Bermudez. I do see pathology results from a previous EGD that shows esophagitis. Patient does report she has been taking various acid reducing therapy since then. Says she believes she is on Protonix right now. I do see Prevacid in her chart. Says she is also been taking Pepto-Bismol and eating Tums multiple times a day She does also report having chronic pain that she has had to manage with qrzk-[id number]-nfzelam medicines. Denies taking any NSAIDs like ibuprofen. Denies taking aspirin. Does take an excessive amount of Tylenol throughout the day. Says she will take up to 8 pills at a time 3 or 4 times a day. She did not really clarify what dosage of acetaminophen she was taking. On presentation to the emergency room patient was very cold and shivering. Low blood pressure was given 3 L normal saline. Hemoglobin came back at 9 and GI team was consulted by the emergency room. Recommended 2 units of blood and ICU admission. 10/01 Patient evaluated and examined at bedside. She has undergone EGD she was doing well afterwards. She is somewhat tachycardic however patient and family at bedside do report she has some baseline sinus tach that has been worked up in the past. Watch blood counts. Okay to transfer out of ICU. If hemoglobin remains stable can likely discharge tomorrow. 10/02 Patient evaluated and examined at bedside. Doing well tolerating diet his blood count stable. Plan for discharge home today with GI follow-up outpatient. Patient agreeable. I spent greater than 30 minutes on the discharge of this patient. I spent 17 minutes discussing advance care planning with this patient. Disposition: Disposition/Orders: D/C to Home Activity: Activity: Resume previous activity Diet: Diet: Regular Medications: Home Meds Active Scripts Pantoprazole Sodium (PANTOPRAZOLE SODIUM ) 40 Mg Tablet., 40 MG PO BIDAC for esophagitis for 60 Days, #120 TAB.SR Prov:NICHOLAS SÁNCHEZ MD 10/02/21 Reported Medications Acetaminophen (ACETAMINOPHEN) 325 Mg Tablet, 650 MG PO PRN Q4-6HRS PRN for PAIN, TAB 10/01/21 Glucosamine/D3/Boswellia [place]areli (OSTEO BI-FLEX CAPLET) 1 Each Tablet, 1 EACH PO DAILY for as directed, TAB 10/01/21 [place]-3 Fatty Acids/Fish Oil (FISH OIL 1,000 MG SOFTGEL) 1 Each Capsule, 1 CAP PO DAILY for as directed for 30 Days, #30 CAP 0 Refills 10/01/21 Fluoxetine Hcl (FLUOXETINE HCL) 40 Mg Capsule, 1 CAP PO DAILY for as directed, #30 CAP 2 Refills 10/01/21 Clonazepam (CLONAZEPAM) 1 Mg Tablet, 1 MG PO DAILY for FOR ANXIETY, TAB 10/01/21 Propranolol Hcl (PROPRANOLOL HCL) 10 Mg Tablet, 1 TAB PO BID for as directed, #60 TAB 1 Refill 10/01/21 Aripiprazole (Aripiprazole) 5 Mg Tablet, 5 MG PO DAILY for as directed, TAB 10/01/21 Hydroxyzine Hcl (HYDROXYZINE HCL) 50 Mg Tablet, 50 MG PO TID for anxiety, TAB 10/01/21 Ezetimibe (ZETIA) 10 Mg Tablet, 1 TAB PO DAILY for as directed for 30 Days, #30 TAB 0 Refills 10/01/21 Cyclobenzaprine Hcl (CYCLOBENZAPRINE HCL) 10 Mg Tablet, 1 TAB PO BID, #90 TAB 01/16/16 Discontinued Reported Medications Pantoprazole Sodium (PANTOPRAZOLE SODIUM ) 40 Mg Tablet.dr, 40 MG PO DAILYAC for GERD, TAB 10/01/21 Quetiapine Fumarate (SEROQUEL XR) 300 Mg Tab.er.24h, 1 TAB PO HS, #30 TAB 1 Refill 01/16/16 Trazodone Hcl (TRAZODONE HCL) 50 Mg Tablet, 1 TAB PO PRN DAILY PRN for ANXIETY / AGITATION, #30 TAB 1 Refill 01/16/16 Lansoprazole (LANSOPRAZOLE) 30 Mg Capsule.dr, 1 CAP PO DAILY, #30 CAP 5 Refills 01/16/16 Dicyclomine Hcl (DICYCLOMINE HCL) 10 Mg Capsule, 1 CAP PO TID, #90 CAP 11 Refills 01/16/16 Butalbital/Aspirin/Caffeine ([id number] CAP) 1 Each Capsule, 1 EACH PO BID 01/16/16 Clonazepam (CLONAZEPAM ) 0.5 Mg Tablet, 1 TAB PO BID, #30 TAB 01/16/16 Quetiapine Fumarate (SEROQUEL XR) 400 Mg Tab.er.24h, 1 TAB PO HS, #30 TAB 1 Refill 01/16/16 Scheduled Aripiprazole (Aripiprazole), 5 MG PO DAILY, (Reported) Clonazepam (Clonazepam), 1 MG PO DAILY, (Reported) Cyclobenzaprine Hcl (Cyclobenzaprine Hcl), 1 TAB PO BID, (Reported) Ezetimibe (Zetia), 1 TAB PO DAILY, (Reported) Fluoxetine Hcl (Fluoxetine Hcl), 1 CAP PO DAILY, (Reported) Glucosamine/D3/Boswellia Yareli (Osteo Bi-Flex Caplet), 1 EACH PO DAILY, (Reported) Hydroxyzine Hcl (Hydroxyzine Hcl), 50 MG PO TID, (Reported) [place]-3 Fatty Acids/Fish Oil (Fish Oil 1,000 Mg Softgel), 1 CAP PO DAILY, (Reported) Pantoprazole Sodium (Pantoprazole Sodium ), 40 MG PO BIDAC Propranolol Hcl (Propranolol Hcl), 1 TAB PO BID, (Reported) Scheduled PRN Acetaminophen (Acetaminophen), 650 MG PO PRN Q4-6HRS PRN for PAIN, (Reported) Discontinued Medications Butalbital/Aspirin/Caffeine (Tqbiwyjcye-Rrg-Elpcvjlf Cap), 1 EACH PO BID, (Reported) Clonazepam (Clonazepam ), 1 TAB PO BID, (Reported) Dicyclomine Hcl (Dicyclomine Hcl), 1 CAP PO TID, (Reported) Lansoprazole (Lansoprazole), 1 CAP PO DAILY, (Reported) Pantoprazole Sodium (Pantoprazole Sodium ), 40 MG PO DAILYAC, (Reported) Quetiapine Fumarate (Seroquel Xr), 1 TAB PO HS, (Reported) Quetiapine Fumarate (Seroquel Xr), 1 TAB PO HS, (Reported) Trazodone Hcl (Trazodone Hcl), 1 TAB PO PRN DAILY PRN for ANXIETY / AGITATION, (Reported) Justicifation of Admission Dx: Justifications for Admission: Justification of Admission Dx: Yes NICHOLAS SÁNCHZE MD Oct 02, 2021 11:30
--- NOTE | 2021-10-02 13:53 | NUR ---
Pt left facility at 1340 by w/c to private vehicle.
== END 2021-10-02 13:40 | disposition home or self-care (01) | DRG 368 ==
LOC: ER 17:00 → ED HOLD 18:34 → 1 WEST ICU 20:31 → 4 NORTH 10-01 16:12
PROVIDERS: ADMIT Student in an Organized Health Care Education/Training Program; ATTEND Student in an Organized Health Care Education/Training Program
PROC: 30233N1 Transfusion of Nonautologous Red Blood Cells into Peripheral Vein, Percutaneous Approach (ICD-10-PCS; 2021-09-30)
PROC: 0DB68ZX Excision of Stomach, Via Natural or Artificial Opening Endoscopic, Diagnostic (ICD-10-PCS; principal; 2021-10-01 09:30)
DX: K21.01 Gastro-esophageal reflux disease with esophagitis, with bleeding (principal); K22.11 Ulcer of esophagus with bleeding; E43 Unspecified severe protein-calorie malnutrition; D62 Acute posthemorrhagic anemia; F31.9 Bipolar disorder, unspecified; F41.9 Anxiety disorder, unspecified; G89.29 Other chronic pain; J45.909 Unspecified asthma, uncomplicated; K44.9 Diaphragmatic hernia without obstruction or gangrene; M79.7 Fibromyalgia; Z20.822 Contact with and (suspected) exposure to COVID-19; Z87.19 Personal history of other diseases of the digestive system; Z90.49 Acquired absence of other specified parts of digestive tract; I95.9 Hypotension, unspecified; K52.9 Noninfective gastroenteritis and colitis, unspecified; Z68.26 Body mass index [BMI] 26.0-26.9, adult
CPT/HCPCS: 36415; 36430; 43239; 80053; 80307; 80329; 81001; 83605; 83690; 85025; 85027; 85610; 85730; 86705; 86709; 86803; 86850; 86900; 86901; 86920; 87086; 87340; 87426; 88305; 96361; 96374; 96375; C9113; J0696; J2405; J2704; J7030; J7120; P9016; U0003; U0005; 99285-25; G0378; G0480